=== PATIENT | female | born 1975 | race Caucasian/White ===

== ENCOUNTER 2016-08-21 04:18 | Emergency (ER) | payer BC ==
[~2016-08-21] VITALS: Ht 180.3 cm; Wt 115.9 kg
[2016-08-21] MEDS ORDERED: HYDROmorphone 1 MG/ML (DILAUDID) SYRINGE IV ONE ×2 (04:40→05:35)
[2016-08-21] MEDS ORDERED: ONDANSETRON 2 MG/ML (Z0FRAN) 2 ML VIAL IV ONE (04:40)
[2016-08-21 05:01] LABS: BASOPHILS % (AUTO) 0 % (0-2); EOSINOPHILS # (AUTO) 0.1 10^3uL; EOSINOPHILS % (AUTO) 2 % (0-4); LYMPHOCYTES # (AUTO) 1.2 X10^3; MEAN CORPUSCULAR HEMOGLOBIN 27.2 PG (26.0-34.0); MEAN CORPUSCULAR VOLUME 80 FL (80-100); MEAN PLATELET VOLUME 9.8 FL (6.0-9.5); MONOCYTES # (AUTO) 0.7 X10^3; MONOCYTES % (AUTO) 8 % (3-11); NEUTROPHILS # (AUTO) 6.4 X10^3; NEUTROPHILS % (AUTO) 76 % (51-67); PLATELET COUNT 310 10^3uL (150-450); WHITE BLOOD COUNT 8.47 10^3uL (4.0-11.0)
[2016-08-21 05:23] LABS: ALBUMIN 4.2 g/dL (3.4-5.0); ANION GAP 13.4 MEQ/L (3-15); TOTAL PROTEIN 7.3 g/dL (6.4-8.5)
[2016-08-21] MEDS ORDERED: LORazepam 2 MG/ML (ATIVAN) 1 ML VIAL IV ONE (05:35)
[2016-08-21 06:04] LABS: BILIRUBIN,URINE Negative (Negative); CLARITY,URINE Clear; COLOR,URINE Yellow; GLUCOSE, URINE (UA) Negative (Negative); LEUKOCYTE ESTERASE ,URINE Negative (Negative); UROBILINOGEN,URINE 0.2 mg/dL (0.2-1.0)
--- NOTE | 2016-08-21 06:53 | NUR ---
Report given to Mulu for continued care of pt, waiting on US to come for pt.
--- NOTE | 2016-08-21 07:04 | NUR ---
CARE ASSUMED OF PT. FAMILY IN LOBBY. WAITING ON ULTRASOUND. CL
[2016-08-21 09:08] VITALS: BP 110/63
== END 2016-08-21 09:10 | disposition home or self-care (01) ==
LOC: ED 04:22
DX: K80.62 Calculus of gallbladder and bile duct with acute cholecystitis without obstruction (principal)
CPT/HCPCS: 36415; 76705; 80053; 81003; 83690; 85025; 96361; 96374; 96375; 96376; 99284; J1170; J2060; J2405; J7030; 99283